=== PATIENT | female | born 1940 | race Two or more races ===

== ENCOUNTER 2017-03-04 20:37 | Inpatient (IN) | payer MEDICARE, MEDICAID ==
[~2017-03-04] VITALS: Ht 157.5 cm
--- NOTE | 2017-03-04 20:55 | NUR ---
To bed 2 a 77 yo female bibra from [facility] with c/o hitting self, undressing in front of people, hearing her father talk to her." Here for psych eval per son at bedside. VSS. Gowned. Awaiting for er md gomez.
[2017-03-04 20:57] LABS: BASOPHILS % (AUTO) 0.3 % (0.0-2.0); EOSINOPHILS # (AUTO) 0.2 /CMM (0.0-0.7); EOSINOPHILS % (AUTO) 1.1 % (0.0-6.0); HEMATOCRIT 36 % (33-45); LYMPHOCYTES # (AUTO) 3.9 /CMM (0.8-4.8); LYMPHOCYTES % (AUTO) 23.9 % (20.0-44.0); MEAN CORPUSCULAR HEMOGLOBIN 31 PG (26.0-33.0); MEAN CORPUSCULAR HGB CONC 34 g/dl (31.0-36.0); MEAN CORPUSCULAR VOLUME 91 fL (82-100); NEUTROPHILS # (AUTO) 11.3 /CMM (1.8-8.9); NEUTROPHILS % (AUTO) 68.7 % (43.0-81.0); PLATELET COUNT (AUTO) 208 /CMM (150-450); RED BLOOD CELL COUNT(AUTO) 3.93 MIL/uL (4.0-5.2); WHITE BLOOD COUNT (AUTO) 16.4 K/uL (4.3-11.0)
[2017-03-04 21:03] LABS: CALCIUM, SERUM 8.7 mg/dL (8.5-10.1); CARBON DIOXIDE 29 mmol/L (21-32); CHLORIDE 104 mmol/L (98-107); CREATININE 1.1 mg/dL (0.6-1.3); GLUCOSE 109 mg/dL (74-106); POTASSIUM 4.1 mmol/L (3.5-5.1); SODIUM SERUM 139 mmol/L (136-145); UREA NITROGEN, BLOOD 21 mg/dL (7-18)
[2017-03-04 21:09] LABS: ACETAMINOPHEN 6 ug/ml (10-30); ALANINE AMINOTRANSFERASE 10 U/L (12-78); ALBUMIN 3.3 g/dL (3.4-5.0); ALKALINE PHOSPHATASE 77 U/L (46-116); ASPARTATE AMINOTRANSFERASE 23 U/L (15-37); BILIRUBIN,DIRECT 0.2 mg/dL (0.0-0.2); BILIRUBIN,TOTAL 0.7 mg/dL (0.2-1.0); TOTAL PROTEIN, SERUM 6.8 g/dL (6.4-8.2)
[2017-03-04 21:10] LABS: ALCOHOL, BLOOD < 3 mg/dL (0-0); SALICYLATE 0.8 mg/dL (2.8-20.0)
--- NOTE | 2017-03-04 21:40 | NUR ---
Performed aseptically an in-out catheter, drained about 100cc of clear pale yellow urine. urine collected and called lab for pick out hand.
[2017-03-04 21:47] LABS: APPEARANCE,URINE Clear (CLEAR); BILIRUBIN,URINE Negative (NEGATIVE); BLOOD, URINE Trace-lysed Ery/uL (NEGATIVE); COLOR,URINE Yellow (YELLOW); KETONES,URINE Negative (NEGATIVE); LEUKOCYTE ESTERASE ,URINE Small (NEGATIVE); NITRITE, URINE Negative (NEGATIVE); PROTEIN,URINE Negative (NEGATIVE); UGLUCOSE Negative (NEGATIVE); UROBILINOGEN,URINE 0.2 EU/dL (0.2)
--- NOTE | 2017-03-04 21:49 | NUR ---
Report given to Peewee BURGOS for bruce.
[2017-03-04 21:53] LABS: CANNABINOID, URINE NEGATIVE (NEGATIVE); PHENCYCLIDINE SCREEN,URINE NEGATIVE (NEGATIVE)
[2017-03-04 21:58] LABS: ADD URINE CULTURE NO; BACTERIA,URINE Few /HPF (None Seen); RBC,URINE 2-3/HPF /HPF (0-2); SQUAMOUS EPITHELIAL CELL,UR Few /HPF (None Seen); URINE AMORPHOUS URATE Few /HPF (None Seen)
--- NOTE | 2017-03-04 22:00 | NUR ---
Transported to gps room, no incident noted.
[2017-03-04] MEDS ORDERED: SIMV20TA2 PO (22:15)
[2017-03-04] MEDS ORDERED: TRIH2TAB3 PO (22:15)
[2017-03-04] MEDS ORDERED: CARB-93 PO (22:15)
[2017-03-04] MEDS ORDERED: LEVO50TA8 PO (22:15)
[2017-03-04] MEDS ORDERED: ASPI81TA2 PO (22:15)
[2017-03-04] MEDS ORDERED: CHOL100040 PO (22:15)
[2017-03-04] MEDS ORDERED: LOSA25TA13 PO (22:15)
[2017-03-04] MEDS ORDERED: PIMA17TA PO (22:15)
[2017-03-04] MEDS ORDERED: CARV6.252 PO (22:15)
[2017-03-04] MEDS ORDERED: MEMA1CAP3 PO (22:15)
[2017-03-04] MEDS ORDERED: DEXT1CAP3 PO (22:15)
[2017-03-04] MEDS ORDERED: DOCU-25 PO (22:15)
[2017-03-04] MEDS ORDERED: MULT-213 PO (22:15)
[2017-03-04] MEDS ORDERED: ACET650T10 PO (22:15)
--- NOTE | 2017-03-04 22:30 | NUR ---
GPS ADMISSION NOTE, RECEIVED PATIENT FROM [facility]. PATIENT ARRIVED ON THIS UNIT A VIA STRETCHER 2 EMT ESCORTS. PATIENT ADMITTED ON A 5150 HOLD FOR GD. PER HOLD PATIENT HAS BEEN INCREASINGLY CONFUSED, AGITATED, TALKING TO HER SELF, MUMBLING, AND DOES NOT RESPOND TO REDIRECTION. PATIENT HAS POOR INSIGHT, IMPAIRED JUDGEMENT, HAS NO REGARD FOR HER SAFETY AND CAN NOT IDENTIFY A VIABLE PLAN OF SELF CARE. PATIENT THE 5150 WAS REVIEWED AND THE DOCUMENTATION IN THE 5150 HOLD APPEARS TO REFLECT THE PRESENTATION OF THE PATIENT. UPON FACE TO FACE ASSESSMENT PATIENT IS CURRENTLY LYING IN BED AWAKE, HAS NO S/S OR COMPLAINTS OF PAIN AT THIS TIME. PATIENT IS DISPLAYING NO S/S OF APPARENT DISTRESS. PATIENT BREATHING IS UNLABORED WITH EQUAL RISE AND FALL OF THE CHEST. PATIENT IS ALERT AND ORIENTATED X 1-2 ON ROOM AIR. PATIENT HAS NO NEEDS AT THIS TIME. PATIENT IS NOTED TO BEING ANXIOUS, DISHEVELED, DISORGANIZED, UN-COOPERATIVE, CONFUSED AT TIMES, GUARDED, AND NEEDS REDIRECTION. PATIENT DENIES SUICIDE IDEATIONS AND HOMICIDAL IDEATIONS AT THIS TIME. PATIENT IS UNDER THE PSYCHIATRIC CARE OF DR COMER AND THE MEDICAL CARE OF DR JAMES. PATIENT BELONGINGS WERE INVENTORIED AND CHECKED FOR CONTRABAND. ALL CONTRABAND REMOVED AND STORED IN PATIENT HALLWAY LOCKER. PATIENT ADVANCED DIRECTIVES PREFERENCE, IMMUNIZATIONS QUESTIONER, NECESSARY PAPERWORK, AND SKIN ASSESSMENT COMPLETED. PATIENT ORIENTATED TO ROOM, FLOOR, AND STAFF WITH ALL QUESTIONS ANSWERED. PATIENT EDUCATED ON THE USE OF THE CALL JAUREGUI. PATIENT BED SIDE RAILS ARE UP X 2 FOR SAFETY. PATIENT BED IS LOCKED, LOW AND I WILL CONTINUE TO MONITOR THIS PATIENT Q 15 MIN WITH THE HELP OF STAFF TO MAINTAIN SAFETY.
[2017-03-04 23:23] VITALS: BP 128/69
[2017-03-04 23:30] VITALS: BP 128/69
[2017-03-04] MEDS ORDERED: ACETAMINOPHEN 325 MG TABLET PO PRN (23:30)
[2017-03-04] MEDS ORDERED: MAGNESIUM HYDROXIDE 30 ML UDC PO PRN (23:30)
[2017-03-04] MEDS ORDERED: MAG HYDROX/AL HYDROX/SIMETH 30 ML UDC PO PRN (23:30)
[2017-03-05] MEDS ORDERED: Z GUARD REMEDY 2 OZ OINT TP PRN (03:00)
[2017-03-05 08:00] VITALS: BP 150/85
[2017-03-05] MEDS: LEVOTHYROXINE SODIUM 50 MCG TABLET PO SCH ×3 (08:24→17:23)
[2017-03-05] MEDS: ASPIRIN 81 MG TAB.CHEW PO SCH (08:45)
[2017-03-05] MEDS: DOCUSATE SODIUM 100 MG CAPSULE PO SCH ×2 (08:46→16:19)
[2017-03-05] MEDS: LOSARTAN POTASSIUM 25 MG TABLET PO SCH (08:46)
[2017-03-05] MEDS: CARBIDOPA/LEVODOPA 25/100 MG 1 UDTAB PO SCH ×3 (08:46→16:19)
[2017-03-05] MEDS: BOOST PLUS FOOD-CHOCLATE 237 ML BOX PO SCH (14:07)
--- NOTE | 2017-03-05 14:30 | NUR ---
Initial Discharge Plan: Patient resides at [facility] [id number] [place] [address]. [place] [address] . intake worker spoke with patient's son Anibal Carter ([phone]) who stated that he would like for patient to return to [facility]. intake worker spoke to Una from the facility who stated that patient can return when she is ready for discharge. intake worker will follow-up with Md, and patient's family to help form a safe and proper discharge.
--- NOTE | 2017-03-05 15:36 | NUR ---
Reviewed psychosocial done by Lisa Stephens. Addendum: 03/05/17 at 1537 by DOMINGO VALENTIN Amended: Links added.
[2017-03-05 15:41] VITALS: BP 139/68
--- NOTE | 2017-03-05 16:47 | NUR ---
GPS RN NOTE: PER MELANIE HEMPHILL [phone] PT IS FULL CODE UNTIL POLST IS UPDATED.
[2017-03-05] MEDS: SIMVASTATIN 20 MG TABLET PO SCH (17:42)
[2017-03-05 20:30] VITALS: BP 152/64
[2017-03-05] MEDS: QUETIAPINE FUMARATE 100 MG TABLET PO SCH (21:55)
[2017-03-05] MEDS: DIVALPROEX SODIUM 125 MG CAP.SPRINK PO SCH (21:55)
[2017-03-05] MEDS: CARVEDILOL 6.25 MG TABLET PO SCH (21:56)
[2017-03-06] MEDS: TEMAZEPAM 7.5 MG CAPSULE PO PRN ×2 (02:16→22:22)
[2017-03-06 07:33] LABS: BASOPHILS % (AUTO) 0.2 % (0.0-2.0); EOSINOPHILS # (AUTO) 0.1 /CMM (0.0-0.7); EOSINOPHILS % (AUTO) 0.8 % (0.0-6.0); HEMATOCRIT 36 % (33-45); HEMOGLOBIN 11.8 g/dL (11.5-14.8); LYMPHOCYTES # (AUTO) 2.3 /CMM (0.8-4.8); LYMPHOCYTES % (AUTO) 18.6 % (20.0-44.0); MEAN CORPUSCULAR HEMOGLOBIN 31 PG (26.0-33.0); MEAN CORPUSCULAR HGB CONC 33 g/dl (31.0-36.0); MEAN CORPUSCULAR VOLUME 94 fL (82-100); MONOCYTES # (AUTO) 0.8 /CMM (0.1-1.30); MONOCYTES % (AUTO) 6.5 % (2.0-12.0); NEUTROPHILS % (AUTO) 73.9 % (43.0-81.0); PLATELET COUNT (AUTO) 221 /CMM (150-450); RED BLOOD CELL COUNT(AUTO) 3.81 MIL/uL (4.0-5.2); WHITE BLOOD COUNT (AUTO) 12.2 K/uL (4.3-11.0)
[2017-03-06 07:55] LABS: ALBUMIN 3.5 g/dL (3.4-5.0); BILIRUBIN,TOTAL 0.9 mg/dL (0.2-1.0); CALCIUM, SERUM 8.9 mg/dL (8.5-10.1); CREATININE 1.1 mg/dL (0.6-1.3); POTASSIUM 4.4 mmol/L (3.5-5.1); TOTAL PROTEIN, SERUM 7.3 g/dL (6.4-8.2)
[2017-03-06 07:57] LABS: THYROID STIMULATING HORMONE 0.375 uIU/mL (0.358-3.74)
[2017-03-06 08:00] VITALS: BP 137/70
[2017-03-06] MEDS: DIVALPROEX SODIUM 125 MG CAP.SPRINK PO SCH ×2 (08:43→21:22)
[2017-03-06] MEDS: QUETIAPINE FUMARATE 25 MG TABLET PO SCH (08:43)
[2017-03-06] MEDS: ASPIRIN 81 MG TAB.CHEW PO SCH (08:43)
[2017-03-06] MEDS: LOSARTAN POTASSIUM 25 MG TABLET PO SCH (08:43)
[2017-03-06] MEDS: DOCUSATE SODIUM 100 MG CAPSULE PO SCH ×2 (08:43→17:49)
[2017-03-06] MEDS: LEVOTHYROXINE SODIUM 50 MCG TABLET PO SCH (08:44)
[2017-03-06] MEDS: CARBIDOPA/LEVODOPA 25/100 MG 1 UDTAB PO SCH ×3 (08:44→17:49)
[2017-03-06] MEDS: BOOST PLUS FOOD-CHOCLATE 237 ML BOX PO SCH ×2 (11:34→13:49)
[2017-03-06 16:00] VITALS: BP 118/63
[2017-03-06] MEDS: SIMVASTATIN 20 MG TABLET PO SCH (17:49)
[2017-03-06] MEDS: QUETIAPINE FUMARATE 100 MG TABLET PO SCH (21:22)
[2017-03-06] MEDS: CARVEDILOL 6.25 MG TABLET PO SCH (21:22)
[2017-03-06 21:30] VITALS: BP 119/67
[2017-03-07 07:52] VITALS: BP 120/60
[2017-03-07] MEDS: DIVALPROEX SODIUM 125 MG CAP.SPRINK PO SCH ×2 (10:32→21:00)
[2017-03-07] MEDS: ASPIRIN 81 MG TAB.CHEW PO SCH (10:32)
[2017-03-07] MEDS: LEVOTHYROXINE SODIUM 50 MCG TABLET PO SCH (10:32)
[2017-03-07] MEDS: DOCUSATE SODIUM 100 MG CAPSULE PO SCH ×2 (10:33→17:20)
[2017-03-07] MEDS: QUETIAPINE FUMARATE 25 MG TABLET PO SCH (10:33)
[2017-03-07] MEDS: LOSARTAN POTASSIUM 25 MG TABLET PO SCH (10:33)
[2017-03-07] MEDS: CARBIDOPA/LEVODOPA 25/100 MG 1 UDTAB PO SCH ×3 (10:33→17:20)
[2017-03-07] MEDS: BOOST PLUS FOOD-CHOCLATE 237 ML BOX PO SCH ×2 (10:35→13:45)
[2017-03-07 15:54] VITALS: BP 141/76
[2017-03-07] MEDS: SIMVASTATIN 20 MG TABLET PO SCH (17:20)
[2017-03-07 20:00] VITALS: BP 139/73
--- NOTE | 2017-03-07 21:00 | NUR ---
PT REFUSED SCHEDULED MEDICATIONS. OFFER 3X, EXPLAIN THE RISK AND BENEFITS OF NOT TAKING HER MEDS. PT STILL REFUSED. WILL CONTINUE TO MONITOR.
[2017-03-07] MEDS: CARVEDILOL 6.25 MG TABLET PO SCH (22:00)
[2017-03-07] MEDS: QUETIAPINE FUMARATE 100 MG TABLET PO SCH (22:00)
[2017-03-08 08:13] VITALS: BP 143/72
[2017-03-08] MEDS: LEVOTHYROXINE SODIUM 50 MCG TABLET PO SCH (08:19)
[2017-03-08] MEDS: DIVALPROEX SODIUM 125 MG CAP.SPRINK PO SCH ×2 (08:20→21:17)
[2017-03-08] MEDS: ASPIRIN 81 MG TAB.CHEW PO SCH (08:21)
[2017-03-08] MEDS: QUETIAPINE FUMARATE 25 MG TABLET PO SCH (08:21)
[2017-03-08] MEDS: LOSARTAN POTASSIUM 25 MG TABLET PO SCH (08:21)
[2017-03-08] MEDS: CARBIDOPA/LEVODOPA 25/100 MG 1 UDTAB PO SCH ×3 (08:21→16:33)
[2017-03-08] MEDS: DOCUSATE SODIUM 100 MG CAPSULE PO SCH ×2 (09:23→16:33)
[2017-03-08 09:26] LABS: BASOPHILS % (AUTO) 0.3 % (0.0-2.0); EOSINOPHILS # (AUTO) 0.1 /CMM (0.0-0.7); HEMATOCRIT 35 % (33-45); HEMOGLOBIN 11.8 g/dL (11.5-14.8); LYMPHOCYTES # (AUTO) 1.9 /CMM (0.8-4.8); LYMPHOCYTES % (AUTO) 18.9 % (20.0-44.0); MEAN CORPUSCULAR HEMOGLOBIN 30 PG (26.0-33.0); MEAN CORPUSCULAR HGB CONC 33 g/dl (31.0-36.0); MEAN CORPUSCULAR VOLUME 91 fL (82-100); MONOCYTES # (AUTO) 0.6 /CMM (0.1-1.30); MONOCYTES % (AUTO) 6.2 % (2.0-12.0); NEUTROPHILS # (AUTO) 7.5 /CMM (1.8-8.9); NEUTROPHILS % (AUTO) 73.6 % (43.0-81.0); PLATELET COUNT (AUTO) 228 /CMM (150-450); RDW COEFFICIENT OF VARIATION 13.7 (11.5-15.0); RED BLOOD CELL COUNT(AUTO) 3.88 MIL/uL (4.0-5.2); WHITE BLOOD COUNT (AUTO) 10.2 K/uL (4.3-11.0)
[2017-03-08] MEDS: BOOST PLUS FOOD-CHOCLATE 237 ML BOX PO SCH ×2 (09:52→14:53)
[2017-03-08 10:00] LABS: CALCIUM, SERUM 8.7 mg/dL (8.5-10.1); POTASSIUM 4.9 mmol/L (3.5-5.1)
[2017-03-08] MEDS ORDERED: DEXTROSE 50%-WATER 50 ML DISP.SYRIN IV PRN (13:30)
[2017-03-08 16:11] VITALS: BP 146/90
[2017-03-08] MEDS: BLOOD SUGAR DIAGNOSTIC 1 EACH STRIP IN SCH ×2 (17:19→22:00)
[2017-03-08] MEDS: INSULIN REGULAR, HUMAN 100 UNIT/ML 3 ML VIAL SQ PRN (17:21)
[2017-03-08] MEDS: SIMVASTATIN 20 MG TABLET PO SCH (17:24)
[2017-03-08 20:00] VITALS: BP 112/67
[2017-03-08] MEDS: CARVEDILOL 6.25 MG TABLET PO SCH (22:08)
[2017-03-08] MEDS: QUETIAPINE FUMARATE 100 MG TABLET PO SCH (22:08)
[2017-03-08] MEDS: TEMAZEPAM 7.5 MG CAPSULE PO PRN (22:09)
--- NOTE | 2017-03-08 22:12 | NUR ---
pt refuse blood sugar to be checked. will continue to monitor.
[2017-03-09] MEDS: BLOOD SUGAR DIAGNOSTIC 1 EACH STRIP IN SCH ×4 (07:30→22:00)
[2017-03-09] MEDS: LEVOTHYROXINE SODIUM 50 MCG TABLET PO SCH (08:50)
[2017-03-09] MEDS: QUETIAPINE FUMARATE 25 MG TABLET PO SCH ×2 (08:50→16:46)
[2017-03-09] MEDS: ASPIRIN 81 MG TAB.CHEW PO SCH (08:50)
[2017-03-09] MEDS: LOSARTAN POTASSIUM 25 MG TABLET PO SCH (08:50)
[2017-03-09] MEDS: DIVALPROEX SODIUM 125 MG CAP.SPRINK PO SCH ×2 (08:51→21:09)
[2017-03-09] MEDS: CARBIDOPA/LEVODOPA 25/100 MG 1 UDTAB PO SCH ×3 (08:51→16:46)
[2017-03-09] MEDS: DOCUSATE SODIUM 100 MG CAPSULE PO SCH ×2 (08:51→16:46)
[2017-03-09] MEDS: BOOST PLUS FOOD-CHOCLATE 237 ML BOX PO SCH ×2 (08:54→14:01)
[2017-03-09 09:04] VITALS: BP 138/68
[2017-03-09] MEDS: METFORMIN 500 MG TABLET PO SCH ×2 (10:30→16:46)
--- NOTE | 2017-03-09 12:28 | NUR ---
GPS: PATIENT REFUSED BLOOD SUGAR 0800 AND 1200.
--- NOTE | 2017-03-09 12:29 | NUR ---
GPS RN: CLARIFIED POLST WITH SON WILBERTO, WISHES THE SAME STATUS, DNR. DR. FOSTER MADE AWARE, ORDER FOR DNR RECEIVED AND CARRIED OUT.
[2017-03-09 16:00] VITALS: BP 101/63
[2017-03-09] MEDS: SIMVASTATIN 20 MG TABLET PO SCH (16:46)
[2017-03-09 20:14] VITALS: BP 112/57
[2017-03-09] MEDS: QUETIAPINE FUMARATE 100 MG TABLET PO SCH (22:04)
[2017-03-09] MEDS: TEMAZEPAM 7.5 MG CAPSULE PO PRN (22:05)
[2017-03-09] MEDS: CARVEDILOL 6.25 MG TABLET PO SCH (22:05)
[2017-03-10 06:18] LABS: BASOPHILS % (AUTO) 0.3 % (0.0-2.0); EOSINOPHILS # (AUTO) 0.3 /CMM (0.0-0.7); EOSINOPHILS % (AUTO) 2.3 % (0.0-6.0); HEMATOCRIT 36 % (33-45); HEMOGLOBIN 12.1 g/dL (11.5-14.8); LYMPHOCYTES # (AUTO) 3.3 /CMM (0.8-4.8); LYMPHOCYTES % (AUTO) 25.7 % (20.0-44.0); MEAN CORPUSCULAR HEMOGLOBIN 31 PG (26.0-33.0); MEAN CORPUSCULAR HGB CONC 34 g/dl (31.0-36.0); MEAN CORPUSCULAR VOLUME 92 fL (82-100); MONOCYTES # (AUTO) 0.8 /CMM (0.1-1.30); MONOCYTES % (AUTO) 6.5 % (2.0-12.0); NEUTROPHILS # (AUTO) 8.4 /CMM (1.8-8.9); NEUTROPHILS % (AUTO) 65.2 % (43.0-81.0); PLATELET COUNT (AUTO) 248 /CMM (150-450); RDW COEFFICIENT OF VARIATION 13.4 (11.5-15.0); RED BLOOD CELL COUNT(AUTO) 3.95 MIL/uL (4.0-5.2); WHITE BLOOD COUNT (AUTO) 12.9 K/uL (4.3-11.0)
[2017-03-10 07:19] LABS: CALCIUM, SERUM 8.8 mg/dL (8.5-10.1); CREATININE 1.2 mg/dL (0.6-1.3); MAGNESIUM 2.5 mg/dL (1.8-2.4); PHOSPHORUS 5.4 mg/dL (2.5-4.9); POTASSIUM 5.4 mmol/L (3.5-5.1)
[2017-03-10] MEDS: BLOOD SUGAR DIAGNOSTIC 1 EACH STRIP IN SCH ×4 (07:27→22:12)
[2017-03-10] MEDS: INSULIN REGULAR, HUMAN 100 UNIT/ML 3 ML VIAL SQ PRN ×4 (07:33→22:18)
[2017-03-10] MEDS: LEVOTHYROXINE SODIUM 50 MCG TABLET PO SCH (07:45)
[2017-03-10 08:00] VITALS: BP 107/67
[2017-03-10] MEDS: METFORMIN 500 MG TABLET PO SCH ×2 (08:29→16:43)
[2017-03-10] MEDS: DOCUSATE SODIUM 100 MG CAPSULE PO SCH ×2 (08:29→16:44)
[2017-03-10] MEDS: DIVALPROEX SODIUM 125 MG CAP.SPRINK PO SCH ×2 (08:29→21:38)
[2017-03-10] MEDS: ASPIRIN 81 MG TAB.CHEW PO SCH (08:29)
[2017-03-10] MEDS: QUETIAPINE FUMARATE 25 MG TABLET PO SCH ×2 (08:29→16:43)
[2017-03-10] MEDS: CARBIDOPA/LEVODOPA 25/100 MG 1 UDTAB PO SCH ×3 (08:29→16:43)
[2017-03-10] MEDS: LOSARTAN POTASSIUM 25 MG TABLET PO SCH (08:30)
[2017-03-10] MEDS: BOOST PLUS FOOD-CHOCLATE 237 ML BOX PO SCH ×2 (09:37→13:44)
[2017-03-10] MEDS ORDERED: IV NS 0.9% 1,000 ML IV PRN (11:30)
--- NOTE | 2017-03-10 13:20 | NUR ---
RN NOTES STARTED IV 0.9% NS 1000 ML/ 80 MLS/HR MD ORDERS ON RIGHT FORE ARM # 22 GAUGE , IV IS ON GOING PERIPHERAL IV LINES INTACT, PT TOLERATING WELL , WILL CONTINUE TO MONITOR
[2017-03-10 14:39] LABS: URIC ACID 6.9 mg/dL (2.6-7.2)
[2017-03-10 14:41] LABS: C-REACTIVE PROTEIN 2.2 mg/dL (0.0-0.9)
[2017-03-10 16:12] VITALS: BP 115/61
[2017-03-10] MEDS: SIMVASTATIN 20 MG TABLET PO SCH (17:57)
[2017-03-10 19:58] VITALS: BP 120/79
[2017-03-10 21:27] LABS: EOSINOPHILS % (MANUAL) 3 % (0-4); LYMPHOCYTES % (MANUAL) 19 % (16-48); MONOCYTES % (MANUAL) 10 % (0-11.0); NEUTROPHILS % (MANUAL) 66 (42-76); REACTIVE LYMPHOCYTES 2 % (0-0)
[2017-03-10 21:28] LABS: ANISOCYTOSIS 1+; PLATELET ESTIMATE ADEQU
[2017-03-10] MEDS: QUETIAPINE FUMARATE 100 MG TABLET PO SCH (21:37)
[2017-03-10] MEDS: CARVEDILOL 6.25 MG TABLET PO SCH (21:37)
[2017-03-10] MEDS ORDERED: IV SET PRIMARY 1 EA INFUS.SET MC ONE (21:48)
--- NOTE | 2017-03-10 22:40 | NUR ---
PT. PULLED OUT THE IV AND IV REINSERTED OF GAUGE #22 ON THE LEFT WRIST, PT. TOLERATED WELL AND WITH GOOD BLOOD RETURN AND THEN IV FLUIDS RESTARTED.
--- NOTE | 2017-03-11 00:22 | NUR ---
DR. RACHELLE MYERS CLARIFIED ABOUT THE IV ORDER AND NOTIFIED THAT PT. PULLED IV 2X ALREADY AND SAID D/C THE IV.
--- NOTE | 2017-03-11 00:37 | NUR ---
Pt has been quite fragmented & confused w/o any insight but compliant with care. She pulled her IV out twice & Shadi Chanel discontinued it.
--- NOTE | 2017-03-11 01:33 | NUR ---
Pt 's blood sugar level last night was 132 mg/dl & 2 units of regular Insulin was given sc as ordered by .
[2017-03-11] MEDS: BLOOD SUGAR DIAGNOSTIC 1 EACH STRIP IN SCH ×4 (07:30→23:06)
[2017-03-11 07:43] LABS: BASOPHILS % (AUTO) 0.3 % (0.0-2.0); EOSINOPHILS # (AUTO) 0.2 /CMM (0.0-0.7); EOSINOPHILS % (AUTO) 2.4 % (0.0-6.0); HEMATOCRIT 33 % (33-45); LYMPHOCYTES # (AUTO) 2.8 /CMM (0.8-4.8); LYMPHOCYTES % (AUTO) 27.9 % (20.0-44.0); MEAN CORPUSCULAR HEMOGLOBIN 31 PG (26.0-33.0); MEAN CORPUSCULAR HGB CONC 34 g/dl (31.0-36.0); MEAN CORPUSCULAR VOLUME 93 fL (82-100); MONOCYTES # (AUTO) 0.6 /CMM (0.1-1.30); MONOCYTES % (AUTO) 6.1 % (2.0-12.0); NEUTROPHILS # (AUTO) 6.3 /CMM (1.8-8.9); NEUTROPHILS % (AUTO) 63.3 % (43.0-81.0); PLATELET COUNT (AUTO) 230 /CMM (150-450); RDW COEFFICIENT OF VARIATION 13.5 (11.5-15.0); RED BLOOD CELL COUNT(AUTO) 3.52 MIL/uL (4.0-5.2)
[2017-03-11 08:00] VITALS: BP 118/58
[2017-03-11 08:06] LABS: CALCIUM, SERUM 8.4 mg/dL (8.5-10.1); POTASSIUM 4.9 mmol/L (3.5-5.1)
[2017-03-11] MEDS: DOCUSATE SODIUM 100 MG CAPSULE PO SCH ×2 (08:45→16:30)
[2017-03-11] MEDS: ASPIRIN 81 MG TAB.CHEW PO SCH (08:45)
[2017-03-11] MEDS: LEVOTHYROXINE SODIUM 50 MCG TABLET PO SCH (08:45)
[2017-03-11] MEDS: DIVALPROEX SODIUM 125 MG CAP.SPRINK PO SCH ×2 (08:46→21:20)
[2017-03-11] MEDS: LOSARTAN POTASSIUM 25 MG TABLET PO SCH (08:46)
[2017-03-11] MEDS: QUETIAPINE FUMARATE 25 MG TABLET PO SCH ×2 (08:46→16:30)
[2017-03-11] MEDS: CARBIDOPA/LEVODOPA 25/100 MG 1 UDTAB PO SCH ×3 (08:47→16:30)
[2017-03-11] MEDS: METFORMIN 500 MG TABLET PO SCH ×2 (08:47→16:29)
[2017-03-11] MEDS: INSULIN REGULAR, HUMAN 100 UNIT/ML 3 ML VIAL SQ PRN ×2 (08:49→12:07)
--- NOTE | 2017-03-11 08:49 | NUR ---
[id number]: BLOOD SUAGR IS 141 MG/DL AND GAVE 2 UNITS OF REGULAR INSULIN UPON PT REQUEST AND WILL CONTINUE TO MONITOR FOR EFFECTIVENESS OF MEDICATION
[2017-03-11] MEDS: BOOST PLUS FOOD-CHOCLATE 237 ML BOX PO SCH ×2 (09:07→14:26)
--- NOTE | 2017-03-11 12:07 | NUR ---
[id number]: BLOOD SUGAR IS 165 MG/DL AND GAVE 3 UNITS OF REGULAR INSULIN
--- NOTE | 2017-03-11 14:04 | NUR ---
[id number]: NOTIFIED DR. FOSTER ABOUT LAB RESULTS FOR 03/11/17: RBC= 3.52, HGB= 11, BUN= 29 , CALCIUM= 8.4. PENDING RETURN PHONE CALL
[2017-03-11 16:00] VITALS: BP 133/93
[2017-03-11] MEDS: SIMVASTATIN 20 MG TABLET PO SCH (17:17)
[2017-03-11] MEDS: DIVALPROEX SODIUM 250 MG TABLET.DR PO SCH (18:04)
[2017-03-11 19:59] VITALS: BP 119/56
[2017-03-11] MEDS: CARVEDILOL 6.25 MG TABLET PO SCH (22:57)
[2017-03-11] MEDS: QUETIAPINE FUMARATE 100 MG TABLET PO SCH (22:59)
[2017-03-12 07:31] LABS: BASOPHILS % (AUTO) 0.3 % (0.0-2.0); EOSINOPHILS # (AUTO) 0.2 /CMM (0.0-0.7); EOSINOPHILS % (AUTO) 2.3 % (0.0-6.0); HEMATOCRIT 33 % (33-45); LYMPHOCYTES # (AUTO) 2.5 /CMM (0.8-4.8); LYMPHOCYTES % (AUTO) 26.5 % (20.0-44.0); MEAN CORPUSCULAR HEMOGLOBIN 31 PG (26.0-33.0); MEAN CORPUSCULAR HGB CONC 33 g/dl (31.0-36.0); MEAN CORPUSCULAR VOLUME 93 fL (82-100); MONOCYTES # (AUTO) 0.6 /CMM (0.1-1.30); MONOCYTES % (AUTO) 5.9 % (2.0-12.0); NEUTROPHILS # (AUTO) 6.1 /CMM (1.8-8.9); PLATELET COUNT (AUTO) 222 /CMM (150-450); RDW COEFFICIENT OF VARIATION 13.2 (11.5-15.0); RED BLOOD CELL COUNT(AUTO) 3.58 MIL/uL (4.0-5.2); WHITE BLOOD COUNT (AUTO) 9.4 K/uL (4.3-11.0)
[2017-03-12] MEDS: BLOOD SUGAR DIAGNOSTIC 1 EACH STRIP IN SCH ×4 (07:34→22:55)
[2017-03-12] MEDS: INSULIN REGULAR, HUMAN 100 UNIT/ML 3 ML VIAL SQ PRN ×3 (07:45→16:51)
--- NOTE | 2017-03-12 07:45 | NUR ---
[id number]: BLOOD SUGAR IS 154 MG/DL AND GAVE 2 UNITS OF REGULAR INSULIN
[2017-03-12] MEDS: LEVOTHYROXINE SODIUM 50 MCG TABLET PO SCH (07:49)
[2017-03-12] MEDS: METFORMIN 500 MG TABLET PO SCH ×2 (08:05→16:19)
[2017-03-12] MEDS: ASPIRIN 81 MG TAB.CHEW PO SCH (08:05)
[2017-03-12] MEDS: CARBIDOPA/LEVODOPA 25/100 MG 1 UDTAB PO SCH ×3 (08:06→16:19)
[2017-03-12] MEDS: QUETIAPINE FUMARATE 25 MG TABLET PO SCH ×2 (08:06→16:19)
[2017-03-12] MEDS: DIVALPROEX SODIUM 125 MG CAP.SPRINK PO SCH ×2 (08:06→21:06)
[2017-03-12] MEDS: LOSARTAN POTASSIUM 25 MG TABLET PO SCH (08:07)
[2017-03-12] MEDS: DOCUSATE SODIUM 100 MG CAPSULE PO SCH ×2 (08:07→16:19)
[2017-03-12 08:13] VITALS: BP 136/62
[2017-03-12] MEDS: BOOST PLUS FOOD-CHOCLATE 237 ML BOX PO SCH ×2 (10:29→13:33)
--- NOTE | 2017-03-12 12:04 | NUR ---
[id number]: BLOOD SUGAR IS 217 MG/DL AND GAVE 4 UNITS OF REGULAR INSULIN
--- NOTE | 2017-03-12 15:23 | NUR ---
computer networker followed-up with Una from [facility] to inform her that patient will be returning to the facility tomorrow March 12, 2017 as she is tentatively being discharged. Una from the facility confirmed that patient can return upon discharge. Addendum: 03/12/17 at 1534 by ANUSHKA VALENTIN Patient will be returning to the facility Monday March 13, 2017
--- NOTE | 2017-03-12 15:29 | NUR ---
ornamental metal worker spoke to patient's son Anibal Carter ([phone]) to inform him that patient is tentatively being discharged tomorrow March 13, 2017 and will be returning back to [address] [place] [address] . Patient's son was agreeable with the discharge plan.
[2017-03-12 16:00] VITALS: BP 103/64
[2017-03-12] MEDS: DIVALPROEX SODIUM 250 MG TABLET.DR PO SCH (16:19)
[2017-03-12] MEDS: SIMVASTATIN 20 MG TABLET PO SCH (17:13)
[2017-03-12 20:12] VITALS: BP 140/80
[2017-03-12] MEDS: QUETIAPINE FUMARATE 100 MG TABLET PO SCH (21:06)
[2017-03-12] MEDS: CARVEDILOL 6.25 MG TABLET PO SCH (21:07)
[2017-03-12] MEDS: TEMAZEPAM 7.5 MG CAPSULE PO PRN (23:00)
[2017-03-13 06:50] LABS: BASOPHILS % (AUTO) 0.3 % (0.0-2.0); EOSINOPHILS # (AUTO) 0.2 /CMM (0.0-0.7); EOSINOPHILS % (AUTO) 2.2 % (0.0-6.0); HEMATOCRIT 34 % (33-45); HEMOGLOBIN 11.4 g/dL (11.5-14.8); LYMPHOCYTES # (AUTO) 3.1 /CMM (0.8-4.8); LYMPHOCYTES % (AUTO) 33.9 % (20.0-44.0); MEAN CORPUSCULAR HEMOGLOBIN 31 PG (26.0-33.0); MEAN CORPUSCULAR HGB CONC 33 g/dl (31.0-36.0); MEAN CORPUSCULAR VOLUME 93 fL (82-100); MONOCYTES # (AUTO) 0.7 /CMM (0.1-1.30); MONOCYTES % (AUTO) 7.2 % (2.0-12.0); NEUTROPHILS # (AUTO) 5.2 /CMM (1.8-8.9); NEUTROPHILS % (AUTO) 56.4 % (43.0-81.0); PLATELET COUNT (AUTO) 240 /CMM (150-450); RDW COEFFICIENT OF VARIATION 13.2 (11.5-15.0); RED BLOOD CELL COUNT(AUTO) 3.67 MIL/uL (4.0-5.2); WHITE BLOOD COUNT (AUTO) 9.3 K/uL (4.3-11.0)
[2017-03-13] MEDS: BLOOD SUGAR DIAGNOSTIC 1 EACH STRIP IN SCH ×4 (07:37→21:11)
[2017-03-13 08:00] VITALS: BP 118/65
[2017-03-13] MEDS: ASPIRIN 81 MG TAB.CHEW PO SCH (09:04)
[2017-03-13] MEDS: CARBIDOPA/LEVODOPA 25/100 MG 1 UDTAB PO SCH ×3 (09:04→17:12)
[2017-03-13] MEDS: DOCUSATE SODIUM 100 MG CAPSULE PO SCH ×2 (09:04→17:12)
[2017-03-13] MEDS: QUETIAPINE FUMARATE 25 MG TABLET PO SCH ×2 (09:04→17:12)
[2017-03-13] MEDS: METFORMIN 500 MG TABLET PO SCH ×2 (09:04→17:12)
[2017-03-13] MEDS: DIVALPROEX SODIUM 125 MG CAP.SPRINK PO SCH ×2 (09:04→21:04)
[2017-03-13] MEDS: LOSARTAN POTASSIUM 25 MG TABLET PO SCH (09:05)
[2017-03-13] MEDS: LEVOTHYROXINE SODIUM 50 MCG TABLET PO SCH (09:05)
[2017-03-13] MEDS: BOOST PLUS FOOD-CHOCLATE 237 ML BOX PO SCH ×2 (09:35→13:36)
--- NOTE | 2017-03-13 10:43 | NUR ---
Class A Lineman spoke to patient's son Anibal Carter ([phone]) to inform him that patient will no longer be discharged today March 13, 2017 and patient's son was agreeable. wheel worker will inform patient's son when patient is ready for discharge.
--- NOTE | 2017-03-13 11:00 | NUR ---
railway track worker spoke to Nena ([phone]) from [facility] to inform her that the patient will not be returning to the facility today. railway track worker faxed Nena ([phone]) updated clinicals.
[2017-03-13] MEDS: INSULIN REGULAR, HUMAN 100 UNIT/ML 3 ML VIAL SQ PRN ×3 (13:35→21:14)
[2017-03-13 16:00] VITALS: BP 123/80
[2017-03-13] MEDS: DIVALPROEX SODIUM 250 MG TABLET.DR PO SCH (17:12)
[2017-03-13] MEDS: SIMVASTATIN 20 MG TABLET PO SCH (17:14)
--- NOTE | 2017-03-13 19:30 | NUR ---
RN NOTE; RECEIVED PT ON DANIEL- CHAIR. AWAKE AND RESPONSIVE. HOWEVER GETTING AGITATED UPON SPEAKING TO THE PT AND STARTS SCREAMING AND YELLING IN A DIFFERENT, LITHUANIAN? LANGUAGE. BREATHING EVENLY. NO SOB. REMAINED UNDER CLOSE SUPERVISION FOR SAFETY. WILL CONT TO MONITOR .
[2017-03-13 20:44] VITALS: BP 138/67
[2017-03-13] MEDS: CARVEDILOL 6.25 MG TABLET PO SCH (21:03)
[2017-03-13] MEDS: QUETIAPINE FUMARATE 100 MG TABLET PO SCH (21:04)
[2017-03-14] MEDS: LORAZEPAM 0.5 MG TABLET PO PRN ×2 (03:04→20:02)
--- NOTE | 2017-03-14 03:08 | NUR ---
ATIVAN GIVEN FOR ANXIETY EPISODES. WILL CONT TO MONITOR
--- NOTE | 2017-03-14 06:28 | NUR ---
RN NOTE; PT IN BED AWAKE. CONFUSED. W/ A POOR QUALITY OF SLEEP. NO ACUTE CHANGES DURING THE NIGHT . COMPLIANT W/ MEDS. ASSISTED W/ ADLS. CLEANED AND DRIED. BED LOW LOCKED. NO S/S OD HYPO OR HYPERGLYCEMIA. WILL CONT TO MONITOR AND WILL ENDORSE TO AM SHIFT FOR ELENA.
[2017-03-14 07:13] LABS: BASOPHILS % (AUTO) 0.3 % (0.0-2.0); EOSINOPHILS # (AUTO) 0.2 /CMM (0.0-0.7); EOSINOPHILS % (AUTO) 2.3 % (0.0-6.0); HEMATOCRIT 35 % (33-45); HEMOGLOBIN 11.5 g/dL (11.5-14.8); LYMPHOCYTES # (AUTO) 3.6 /CMM (0.8-4.8); LYMPHOCYTES % (AUTO) 36.6 % (20.0-44.0); MEAN CORPUSCULAR HEMOGLOBIN 31 PG (26.0-33.0); MEAN CORPUSCULAR HGB CONC 33 g/dl (31.0-36.0); MEAN CORPUSCULAR VOLUME 93 fL (82-100); MONOCYTES # (AUTO) 0.6 /CMM (0.1-1.30); MONOCYTES % (AUTO) 6.5 % (2.0-12.0); NEUTROPHILS # (AUTO) 5.3 /CMM (1.8-8.9); NEUTROPHILS % (AUTO) 54.3 % (43.0-81.0); PLATELET COUNT (AUTO) 245 /CMM (150-450); RDW COEFFICIENT OF VARIATION 13.4 (11.5-15.0); RED BLOOD CELL COUNT(AUTO) 3.73 MIL/uL (4.0-5.2); WHITE BLOOD COUNT (AUTO) 9.9 K/uL (4.3-11.0)
[2017-03-14] MEDS: BLOOD SUGAR DIAGNOSTIC 1 EACH STRIP IN SCH ×4 (07:42→22:39)
[2017-03-14 08:00] VITALS: BP 110/64
[2017-03-14] MEDS: ASPIRIN 81 MG TAB.CHEW PO SCH (08:35)
[2017-03-14] MEDS: QUETIAPINE FUMARATE 25 MG TABLET PO SCH ×2 (08:35→16:38)
[2017-03-14] MEDS: LEVOTHYROXINE SODIUM 50 MCG TABLET PO SCH (08:35)
[2017-03-14] MEDS: METFORMIN 500 MG TABLET PO SCH ×2 (08:35→16:38)
[2017-03-14] MEDS: CARBIDOPA/LEVODOPA 25/100 MG 1 UDTAB PO SCH ×3 (08:38→16:38)
[2017-03-14] MEDS: DOCUSATE SODIUM 100 MG CAPSULE PO SCH ×2 (08:38→16:38)
[2017-03-14] MEDS: LOSARTAN POTASSIUM 25 MG TABLET PO SCH (08:38)
[2017-03-14] MEDS: DIVALPROEX SODIUM 125 MG CAP.SPRINK PO SCH ×3 (08:39→21:18)
[2017-03-14] MEDS: BOOST PLUS FOOD-CHOCLATE 237 ML BOX PO SCH ×2 (10:53→14:06)
[2017-03-14] MEDS: INSULIN REGULAR, HUMAN 100 UNIT/ML 3 ML VIAL SQ PRN ×3 (12:01→23:20)
[2017-03-14 15:58] VITALS: BP 129/69
[2017-03-14] MEDS: DIVALPROEX SODIUM 250 MG TABLET.DR PO SCH (16:38)
[2017-03-14] MEDS: SIMVASTATIN 20 MG TABLET PO SCH (18:19)
[2017-03-14] MEDS: QUETIAPINE FUMARATE 100 MG TABLET PO SCH ×2 (20:02→21:18)
[2017-03-14] MEDS: CARVEDILOL 6.25 MG TABLET PO SCH (21:18)
--- NOTE | 2017-03-14 23:46 | NUR ---
SLIDING SCALE IS NOT GIVEN PATIENT BLOOD SUGAR IS ONLY 120
--- NOTE | 2017-03-15 06:48 | NUR ---
BLOOD SUGAR THIS MORNING IS 107 SLIDING SCALE NOT GIVEN WILL ENDORSE TO THE MORNING NURSE TO CONTINUITY OF CARE.
[2017-03-15 06:54] LABS: BASOPHILS % (AUTO) 0.3 % (0.0-2.0); EOSINOPHILS # (AUTO) 0.3 /CMM (0.0-0.7); EOSINOPHILS % (AUTO) 2.5 % (0.0-6.0); HEMATOCRIT 33 % (33-45); HEMOGLOBIN 10.8 g/dL (11.5-14.8); LYMPHOCYTES # (AUTO) 3.3 /CMM (0.8-4.8); LYMPHOCYTES % (AUTO) 30.9 % (20.0-44.0); MEAN CORPUSCULAR HEMOGLOBIN 31 PG (26.0-33.0); MEAN CORPUSCULAR HGB CONC 33 g/dl (31.0-36.0); MEAN CORPUSCULAR VOLUME 94 fL (82-100); MONOCYTES # (AUTO) 0.7 /CMM (0.1-1.30); MONOCYTES % (AUTO) 6.6 % (2.0-12.0); NEUTROPHILS # (AUTO) 6.5 /CMM (1.8-8.9); NEUTROPHILS % (AUTO) 59.7 % (43.0-81.0); PLATELET COUNT (AUTO) 225 /CMM (150-450); RDW COEFFICIENT OF VARIATION 13.2 (11.5-15.0); RED BLOOD CELL COUNT(AUTO) 3.46 MIL/uL (4.0-5.2); WHITE BLOOD COUNT (AUTO) 10.8 K/uL (4.3-11.0)
[2017-03-15] MEDS: BLOOD SUGAR DIAGNOSTIC 1 EACH STRIP IN SCH ×2 (07:37→12:06)
[2017-03-15 08:00] VITALS: BP 129/76
[2017-03-15] MEDS: LEVOTHYROXINE SODIUM 50 MCG TABLET PO SCH (09:32)
[2017-03-15] MEDS: QUETIAPINE FUMARATE 25 MG TABLET PO SCH (09:32)
[2017-03-15 09:33] VITALS: BP 129/76
[2017-03-15] MEDS: LOSARTAN POTASSIUM 25 MG TABLET PO SCH (09:33)
[2017-03-15] MEDS: DOCUSATE SODIUM 100 MG CAPSULE PO SCH (09:33)
[2017-03-15] MEDS: DIVALPROEX SODIUM 125 MG CAP.SPRINK PO SCH (09:34)
[2017-03-15] MEDS: CARBIDOPA/LEVODOPA 25/100 MG 1 UDTAB PO SCH ×2 (09:35→13:08)
[2017-03-15] MEDS: ASPIRIN 81 MG TAB.CHEW PO SCH (09:35)
[2017-03-15] MEDS: METFORMIN 500 MG TABLET PO SCH (09:35)
[2017-03-15] MEDS: BOOST PLUS FOOD-CHOCLATE 237 ML BOX PO SCH (11:21)
--- NOTE | 2017-03-15 12:46 | NUR ---
DR. COMER GAVE AN ORDER TO D/C HOLD AND D/C TO [facility]. PT. WITHOUT DISTRESS, DENIES SUICIDAL AND HOMICIDAL AND TO FOLLOW UP WITH PSYCH AND MEDICAL DOCTORS. BELONGINGS READY, DISCHARGE PAPERS READY, PICTURES TAKEN FOR THE SKIN ISSUES. CALVIN RICE NP MADE AWARE OF THE DISCHARGE AND SAID OK FOR DISCHARGE AND RECONCILED THE MEDS. REPORT GIVEN TO JULI CANELA RN OVER THE FACILITY.
--- NOTE | 2017-03-15 13:35 | NUR ---
PT. LEFT THE UNIT VIA AMBULANCE AND TRANSPORTED VIA A GURNEY . DAUGHTER IS PRESENT DURING THE DISCHARGE AND SAID SHE WILL FOLLOW THE AMBULANCE TO THE FACILITY. LEFT WITHOUT DISTRESS AND ON STABLE CONDITION. V/S TAKEN: BP 129/57; NJ 89; RR 20; OXYGEN SAT 97% AND TEMP. 98.0.
--- NOTE | 2017-03-15 14:24 | NUR ---
Patient was discharged back to [facility] [address] [place], [place] [id number] . Via med response. Patient's son Anibal Carter ([phone]) was notified. Patient's son was agreeable with the discharge plan. Patient's mood and affect were appropriate. Patient denied suicidal/ homicidal ideations. Patient's daughter Azul Vargas was with patient upon discharge and stated that she would follow the ambulance to the facility. social group worker provided patient and patient's daughter with referrals to the [facility] [address] [facility] [place] [address]. Patient's daughter agreed to follow-up with a psychiatrist within 30 days. Facilitated info to IDT team who are in agreement with discharge arrangement. The multidisciplinary exitcare form was done, printed, signed, and given to the patient.
== END 2017-03-15 13:35 | DRG 885 ==
LOC: ER 20:39 → GPS 21:31
PROVIDERS: ADMIT Psychiatry & Neurology Psychiatry; ATTEND Internal Medicine
DX: F29 Unspecified psychosis not due to a substance or known physiological condition (principal); F02.81 Dementia in other diseases classified elsewhere, unspecified severity, with behavioral disturbance; E11.65 Type 2 diabetes mellitus with hyperglycemia; E03.9 Hypothyroidism, unspecified; D72.829 Elevated white blood cell count, unspecified; E78.5 Hyperlipidemia, unspecified; G20 Parkinson's disease; I10 Essential (primary) hypertension; K21.9 Gastro-esophageal reflux disease without esophagitis; E87.5 Hyperkalemia; Z79.899 Other long term (current) drug therapy; Z73.6 Limitation of activities due to disability; I25.10 Atherosclerotic heart disease of native coronary artery without angina pectoris
CPT/HCPCS: 36415; 71010-TC; 80048-TC; 80053-TC; 80061-TC; 80076-TC; 80305; 81000-TC; 82962-TC; 83605-TC; 83615-TC; 83735-TC; 84100-TC; 84443-TC; 84550-TC; 85025-TC; 85652-TC; 86140-TC; 87040-TC; 87081-TC; 87086-TC; 92521; 97001-TC; 97110-TC; 97116-TC; 97530-TC; A4606; G0480; G6039-TC; J1815; J7030; Z7610